=== PATIENT | female | born 1970 | race Caucasian/White ===

== ENCOUNTER → 2020-04-09 11:30 | Outpatient (CLI) | payer BC, SELFPAY ==
--- NOTE | ~2020-04-09 | MM_ITS ---
EXAMINATION: MM scrn yolanda implant BI w mona HISTORY: Screening mammogram TECHNIQUE: Craniocaudal and mediolateral oblique 3-D tomosynthesis images with implant displacement a nd synthetic 2-D images were generated. Craniocaudal and mediolateral oblique views of the breasts wi thout implant displacement were obtained using full field digital mammography. CAD analysis was submi tted and interpreted. COMPARISON: 02/27/2002 BREAST PARENCHYMAL COMPOSITION: The breasts are heterogeneously dense, which may obscure small masses . FINDINGS: There is no evidence of suspicious mass, calcification, or architectural distortion to sugg est malignancy in either breast. There has been no suspicious interval change. IMPRESSION: 1. No mammographic evidence of malignancy. 2. Recommend routine screening mammography in one year. BI-RADS Category 1: Negative Reviewed, dictated and finalized at location A.
== END ==
PROVIDERS: PCP Physician Assistant; Visit Provider Obstetrics & Gynecology
DX: Z12.31 Encounter for screening mammogram for malignant neoplasm of breast (principal)
CPT/HCPCS: 77063; 77067

== ENCOUNTER → 2021-04-13 11:42 | Outpatient (CLI) | payer BC, SELFPAY ==
--- NOTE | ~2021-04-13 | MM_ITS ---
EXAMINATION: MM scrn yolanda implant BI w mona HISTORY: Screening mammogram TECHNIQUE: Craniocaudal and mediolateral oblique 3-D tomosynthesis images with implant displacement a nd synthetic 2-D images were generated. Craniocaudal and mediolateral oblique views of the breasts wi thout implant displacement were obtained using full field digital mammography. CAD analysis was submi tted and interpreted. COMPARISON: 04/09/2020, 02/27/2019, 07/15/2017 bilateral digital screening mammogram examinations BREAST PARENCHYMAL COMPOSITION: The breasts are heterogeneously dense, which may obscure small masses . FINDINGS: Status post bilateral augmentation mammoplasty. There is no evidence of suspicious mass, ca lcification, or architectural distortion to suggest malignancy in either breast. There has been no vernon spicious interval change. IMPRESSION: 1. No mammographic evidence of malignancy. 2. Recommend routine screening mammography in one year. BI-RADS Category 1: Negative Reviewed, dictated and finalized at location A.
== END ==
PROVIDERS: Visit Provider Obstetrics & Gynecology
DX: Z12.31 Encounter for screening mammogram for malignant neoplasm of breast (principal)
CPT/HCPCS: 77063; 77067

== ENCOUNTER 2021-08-25 01:19 | Day surgery (SDC) | payer BC, SELFPAY ==
[2021-08-11 15:18] VITALS: BMI 22.4
[2021-08-25 06:39] VITALS: BP 138/89; PULSE 88; RESP 18; TEMP 36.6; O2SAT 100; BMI 21.3
[2021-08-25] MEDS: LACTATED RINGERS 1,000 ML 150 ML IV CONT (06:50)
--- NOTE | 2021-08-25 06:51 | WPDANESEPPF ---
Anes - Initial Pre Proc Eval Procedure: Operation Date: 08/25/21 07:30 Proposed Procedures p Screening Colonoscopy - Peter Culver MD Date/Time: 08/25/21 06:51 Surgeon: Peter Culver MD Pre Op Diagnosis: hx of colon polyps Patient Data Age: 50 Gender: F Height: 1.77 m Weight: 66.5 kg Last Vital Signs Temp 36.6 C 08/25/21 06:39 Pulse 88 08/25/21 06:39 Resp 18 08/25/21 06:39 BP 138/89 08/25/21 06:39 Pulse Ox 100 08/25/21 06:39 Allergies Allergy/AdvReac Type Severity Reaction Status Date / Time No Known Allergies Allergy Verified 08/25/21 06:36 Home Medications Medication Instructions Recorded Confirmed Type desog-e.estradiol/e.estradiol 1 tablet PO DAILY 08/20/19 08/25/21 History [Deepali (28)] amlodipine 2.5 mg PO DAILY 08/11/21 08/25/21 History bupropion HCl 150 mg PO DAILY 08/11/21 08/25/21 History Patient hx anesthesia problems: none Family hx anesthesia problems: none Results Review: All pre-operative results and documents have been reviewed as part of the pre-operative evaluation. [facility] Past Medical History Medical History (Updated 08/25/21 @ 06:52 by Pepe Flower DO) Hypertension MVP (mitral valve prolapse) Social History Social History (Updated 09/28/19 @ 10:47 by Evan Deleon MD) Smoking status: Never smoker Alcohol intake: current Alcohol use details: rare occasional use Substance use: never Substance use type: does not use Living arrangements: with family Spiritual care concerns: No Anes - Eval Final PreProcedure Day of Procedure 08/25/21 06:51 Patient weight: normal Heart: regular rate and rhythm Lungs: clear to auscultation and normal air movement Airway: Mallampati scale class II Neurological: alert and oriented Last oral intake: >/= 8 hours ASA classification: II Emergent: no Anesthetic plan: proceed Anesthesia type and monitoring: general GIVS and standard monitoring Results Review: All pre-operative results and documents have been reviewed as part of the pre-operative evaluation. Informed Consent: The patient's anesthetic plan and its attendant risks and benefits were discussed with the patient/family/POA. Questions were solicited and answers provided to the satisfaction of the patient/family/POA.
[2021-08-25 07:49] VITALS: BP 107/64; PULSE 80; RESP 23; O2SAT 100
--- NOTE | 2021-08-25 07:49 | WPDGICN ---
Assessment and Plan Assessment and plan (1) History of colon polyps: Code(s): Z86.010 - Personal history of colonic polyps Status: Acute Assessment and Plan: Patient has a history of a large colon polyp removed from the colon in 2013. Plan is for surveillance colonoscopy now and at intervals in the future. Further recommendations will be given after colonoscopy. GI Consult Note Consult date/time: 08/25/21 07:49 HPI: Tamra Srinivasan is a 50 year old female Presents for colonoscopy. Patient has a history of very large colon adenomatous colon polyp removed from the colon in 2013. She presents today for follow-up examination. Current her current weight appetite bowel movements are unremarkable. She denies any blood in her stools. She has no abdominal pain. Family history is noncontributory. Review of Systems Review of Systems: All systems reviewed & are unremarkable except as noted in HPI and below PMFSH Past Medical History Medical History (Updated 08/25/21 @ 07:51 by Peter Culver MD) Hypertension MVP (mitral valve prolapse) Social History Social History (Updated 09/28/19 @ 10:47 by Evan Deleon MD) Smoking status: Never smoker Alcohol intake: current Alcohol use details: rare occasional use Substance use: never Substance use type: does not use Living arrangements: with family Spiritual care concerns: No Meds Home Medications and Allergies Home Medications Medication Instructions Recorded Confirmed Type desog-e.estradiol/e.estradiol 1 tablet PO DAILY 08/20/19 08/25/21 History [Deepali (28)] amlodipine 2.5 mg PO DAILY 08/11/21 08/25/21 History bupropion HCl 150 mg PO DAILY 08/11/21 08/25/21 History Allergies Allergy/AdvReac Type Severity Reaction Status Date / Time No Known Allergies Allergy Verified 08/25/21 06:36 Vital Signs Vital Signs - 24 hr 08/25/21 06:39 Temperature 97.8 F Pulse Rate 88 Respiratory Rate 18 Blood Pressure 138/89 Pulse Oximetry 100 Exam Narrative: Physical exam reveals patient to be alert. Vital signs stable. HEENT exam is unremarkable. Patient is anicteric. Lungs are clear to auscultation and to percussion. Heart is without murmur or extra sounds. Abdominal exam bowel sounds are present soft nontender with no organomegaly. Digital external rectal exam is normal.
[2021-08-25 07:59] VITALS: BP 118/74; PULSE 66; RESP 16; O2SAT 100
[2021-08-25 08:09] VITALS: BP 135/87; PULSE 70; RESP 20; O2SAT 100
== END 2021-08-25 08:45 | disposition home or self-care (01) ==
PROVIDERS: PCP Physician Assistant; Visit Provider Internal Medicine Gastroenterology
PROC: 0DJD8ZZ Inspection of Lower Intestinal Tract, Via Natural or Artificial Opening Endoscopic (ICD-10-PCS; CPT 45378; principal; 2021-08-25 07:30)
DX: Z12.11 Encounter for screening for malignant neoplasm of colon (principal); Z86.010 Personal history of colon polyps; I10 Essential (primary) hypertension; I34.1 Nonrheumatic mitral (valve) prolapse
CPT/HCPCS: 45378; J2704; J7120

== ENCOUNTER 2022-07-21 13:48 | Outpatient (CLI) | payer BC, SELFPAY ==
--- NOTE | ~2022-07-21 | MM_ITS ---
EXAMINATION: MM scrn yolanda implant BI w mona HISTORY: Screening mammogram TECHNIQUE: Craniocaudal and mediolateral oblique 3-D tomosynthesis images with implant displacement a nd synthetic 2-D images were generated. Craniocaudal and mediolateral oblique views of the breasts wi thout implant displacement were obtained using full field digital mammography. CAD analysis was submi tted and interpreted. COMPARISON: Comparison to multiple prior studies sequentially, with oldest reviewed study dated 02/27. BREAST PARENCHYMAL COMPOSITION: The breasts are heterogeneously dense, which may obscure small masses . FINDINGS: There are bilateral subpectoral silicone implants. There is no evidence of suspicious mass, calcification, or architectural distortion to suggest malignancy in either breast. There has been no suspicious interval change. IMPRESSION: 1. No mammographic evidence of malignancy. 2. Recommend routine screening mammography in one year. BI-RADS Category 1: Negative Reviewed, dictated and finalized at location A.
== END 2022-07-21 13:49 | disposition home or self-care (01) ==
PROVIDERS: PCP Physician Assistant; Visit Provider Obstetrics & Gynecology
DX: Z12.31 Encounter for screening mammogram for malignant neoplasm of breast (principal)
CPT/HCPCS: 77063; 77067

== ENCOUNTER → 2023-07-04 09:57 | Outpatient (CLI) | payer BC, SELFPAY ==
--- NOTE | ~2023-07-04 | MR_ITS ---
MRI of the cervical spine Clinical History: Radiculopathy Technique: Axial T2-weighted and gradient images, and sagittal T1-weighted, T2-weighted, and STIR linda ges were acquired. Findings: There is mild reversal of the normal cervical lordosis. No acute fracture seen. There is mi nimal grade 1 anterolisthesis of C3 over C4. There is minimal grade 1 retrolisthesis of C5 over C6. N o suspicious bone marrow signal abnormality seen. At C2-C3, there is no disc bulge or herniation. There is left facet arthropathy with possible mild le ft neural foraminal narrowing. Right neural foramen preserved. No central canal stenosis or cord comp ression. At C3-C4, there is minimal disc osteophyte convex. There is left facet arthropathy with left neural f oraminal narrowing. Right neural foramen preserved. No central canal stenosis or cord compression. At C4-C5, there is no significant disc bulge or herniation. No spinal canal stenosis, cord compressio n, or right neural foraminal narrowing. Possible minimal left neural foraminal narrowing with left fa cet hypertrophy. At C5-C6, there is disc osteophyte complex with mild canal stenosis and possible minimal flattening t he ventral cord. Bilateral neural foramina are preserved, despite mild facet arthropathy. At C6-C7, there is mild disc osteophyte complex. There is minimal canal stenosis without alyssa cord c ompression. Bilateral neural foramina appear preserved. No abnormal signal seen in the spinal cord. Paravertebral soft tissues are unremarkable. Impression: [id number] degenerative spondylosis, as detailed above. Minimal grade 1 anterolisthesis of C3 over C4. Minimal grade 1 anterolisthesis of C5 over C6. Reviewed, dictated and finalized at [facility]. Impression: [id number] degenerative spondylosis, as detailed above. Minimal grade 1 anterolisthesis of C3 over C4. Minimal grade 1 anterolisthesis of C5 over C6.
== END ==
PROVIDERS: Visit Provider Physician Assistant
DX: M43.02 Spondylolysis, cervical region (principal); M54.12 Radiculopathy, cervical region
CPT/HCPCS: 72141

== ENCOUNTER → 2023-10-28 10:20 | Outpatient (CLI) | payer BC, SELFPAY ==
--- NOTE | ~2023-10-28 | MM_ITS ---
EXAMINATION: MM scrn yolanda implant BI w mona HISTORY: Screening mammogram TECHNIQUE: Craniocaudal and mediolateral oblique 3-D tomosynthesis images with implant displacement a nd synthetic 2-D images were generated. Craniocaudal and mediolateral oblique views of the breasts wi thout implant displacement were obtained using full field digital mammography. CAD analysis was submi tted and interpreted. COMPARISON: 07/21/2022, 04/13/2021, 04/09/2020 bilateral implant screening mammogram examinations BREAST PARENCHYMAL COMPOSITION: The breasts are heterogeneously dense, which may obscure small masses . FINDINGS: Status post bilateral augmentation mammoplasty. Suggestion of possible approximately 6 x 8.5 mm mass in the posterior mid to upper outer right breast on MLO view (MLO Tomosynthesis image ). Otherwise there is no evidence of suspicious mass, calcification, or architectural distortion to sugg est malignancy in either breast. There has been no other suspicious interval change. IMPRESSION: 1. Possible 6 x 8.5 mm mass in posterior mid to upper outer right breast 2. Diagnostic right mammogram and right breast ultrasound examination are recommended BI-RADS Category 0: Incomplete: Needs additional imaging evaluation. Reviewed, dictated and finalized at location A. APPLICATOR IMPRESSION: 1. Possible 6 x 8.5 mm mass in posterior mid to upper outer right breast 2. Diagnostic right mammogram and right breast ultrasound examination are recom mended BI-RADS Category 0: Incomplete: Needs additional imaging evaluation.
== END ==
PROVIDERS: PCP Obstetrics & Gynecology; Visit Provider Obstetrics & Gynecology
DX: Z12.31 Encounter for screening mammogram for malignant neoplasm of breast (principal); N63.11 Unspecified lump in the right breast, upper outer quadrant
CPT/HCPCS: 77063; 77067

== ENCOUNTER 2023-11-23 12:23 | Outpatient (CLI) | payer BC, SELFPAY ==
--- NOTE | ~2023-11-23 | MM_ITS ---
EXAMINATION: MM diagnostic yolanda RT w mona HISTORY: Possible 6 x 8.5 mm mass suggested in the posterior mid to upper outer right breast on 2023 screening mammogram examination TECHNIQUE: Additional 3-D tomosynthesis images of the right breast were performed and synthetic 2-D i mages were generated. CAD analysis was submitted and interpreted. COMPARISON: October 28, 2023 bilateral implant screening mammogram FINDINGS: These additional views reveal no evidence of any mass in the area in question on the 2023 mammogram in the posterior mid to upper breast on implant displaced MLO view. IMPRESSION: 1. No mammographic evidence of malignancy 2. Routine annual mammographic screening is recommended. BI-RADS Category 1: Negative Reviewed, dictated and finalized at location A. [employer]
== END 2023-11-23 12:24 | disposition home or self-care (01) ==
PROVIDERS: PCP Obstetrics & Gynecology; Visit Provider Obstetrics & Gynecology
DX: R92.8 Other abnormal and inconclusive findings on diagnostic imaging of breast (principal)
CPT/HCPCS: 77061; 77065; G0279

== ENCOUNTER 2024-10-30 09:25 | Outpatient (CLI) | payer BC, SELFPAY ==
--- NOTE | ~2024-10-30 | MM_ITS ---
EXAMINATION: MM scrn yolanda implant BI w mona HISTORY: Screening mammogram TECHNIQUE: Craniocaudal and mediolateral oblique 3-D tomosynthesis images with implant displacement a nd synthetic 2-D images were generated. Craniocaudal and mediolateral oblique views of the breasts wi thout implant displacement were obtained using full field digital mammography. CAD analysis was submi tted and interpreted. COMPARISON: Comparison to multiple prior studies sequentially, with oldest reviewed study dated 02/27. BREAST PARENCHYMAL COMPOSITION: Dense: The breasts are heterogeneously dense, which may obscure small masses FINDINGS: There is no evidence of suspicious mass, calcification, or architectural distortion to sugg est malignancy in either breast. There has been no suspicious interval change. IMPRESSION: 1. No mammographic evidence of malignancy. 2. Recommend routine screening mammography in one year. BI-RADS Category 1: Negative Reviewed, dictated and finalized at location B. CHAIRMAN
== END 2024-10-30 09:26 | disposition home or self-care (01) ==
LOC: MICIMG 09:26
PROVIDERS: PCP Obstetrics & Gynecology; Visit Provider Obstetrics & Gynecology
DX: Z12.31 Encounter for screening mammogram for malignant neoplasm of breast (principal)
CPT/HCPCS: 77063; 77067